=== PATIENT | male | born 1995 | race Caucasian/White ===

== ENCOUNTER → 2016-04-08 | Outpatient (CLI) | payer BC ==
[~2016-04-08] MED LIST: ANTIDEPRESSANT; FLUO40CA12 PO; LAMO25TA4 PO; LANS15CA PO; NF-CYM60C PO; NF-TORA10 PO; prozac
== END ==
LOC: EMS 17:12
PROVIDERS: ATTEND Family Medicine
DX: S68.125A Partial traumatic metacarpophalangeal amputation of left ring finger, initial encounter (principal); W31.2XXA Contact with powered woodworking and forming machines, initial encounter; Y93.89 Activity, other specified; Y92.015 Private garage of single-family (private) house as the place of occurrence of the external cause

== ENCOUNTER → 2016-06-26 | Outpatient (CLI) | payer BC ==
--- NOTE | 2016-06-26 13:54 | Diagnostic Imaging Report ---
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 DISCUSSION: Three views of the left hand were obtained, no comparison. 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 Mild soft tissue swelling is noted within the remaining fourth finger. No fracture or dislocation otherwise identified. No radiopaque foreign body. IMPRESSION: 1. Status post amputation of the distal left fourth finger as described. No acute osseous abnormality otherwise identified. Dictated by: Dictated on workstation # [id number]
== END ==
LOC: RAD 11:58
PROVIDERS: ATTEND Family Medicine
DX: G54.6 Phantom limb syndrome with pain (principal); S68.113D Complete traumatic metacarpophalangeal amputation of left middle finger, subsequent encounter; X58.XXXD Exposure to other specified factors, subsequent encounter
CPT/HCPCS: 73130